=== PATIENT | female | born 1980 | race Caucasian/White ===

== ENCOUNTER 2022-11-13 08:41 | Emergency (ER) | payer OTHER, SELFPAY ==
[2022-11-13 08:42] VITALS: BP 114/65; PULSE 74; RESP 22; TEMP 36.6; O2SAT 100; BMI 26.3
--- NOTE | 2022-11-13 08:56 | EDS_ITS ---
HPI HPI - GI History of Present Illness Chief Complaint: Flank Pain Narrative Narrative: 42-year-old female presenting with right-sided abdominal pain and back pain. She states that this started about 5 AM this morning while she was camping. She denies any injury. She states the pain is constant but waxes and wanes in severity. She had 3 episodes of vomiting this morning. She states it feels sharp and cramping in the right side of her abdomen. Denies history of kidney stones. She states she has had a tubal ligation. No history of ovarian cysts or torsion. She does not have any urinary or vaginal complaints. She states that currently the pain that she is having is more to the midline in the suprapubic area. No fevers or chills. She states she has not been constipated and actually had a bowel movement this morning which was normal. PFSH PFS Medical History delivery delivered Hypothyroidism Home Medications ondansetron 4 mg disintegrating tablet 4 mg PO Q8H PRN PRN Nausea #14 tabs 11/13/22 [Rx Last Taken Unknown] oxycodone-acetaminophen 5 mg-325 mg tablet (Percocet) 1 tab PO Q8H PRN pain 3 days #12 tabs 11/13/22 [Rx Last Taken Unknown] Allergy/AdvReac Type Severity Reaction Status Date / Time No Known Allergies Allergy Verified 11/13/22 08:46 Social History Smoking Status: Never smoker ROS ROS ED Constitutional Constitutional ED: Denies chills or fever(s) ENT ENT ED: Denies rhinorrhea or sore throat Cardiovascular Cardiovascular: Denies chest pain or palpitations Respiratory/Chest Respiratory/Chest: Denies cough or dyspnea Gastrointestinal Gastrointestinal: Reports abdominal pain, nausea and vomiting Genitourinary Genitourinary ED: Denies dysuria or hematuria Musculoskeletal Musculoskeletal: Reports back pain; Denies arthralgias Integumentary Denies abscess Neurologic Neurologic: Denies headache(s) or paresthesias Psychiatric Psychiatric: Denies anxiety or depression EXAM Physical Exam Const Vital Signs: 11/13/22 08:42 Temperature 97.8 F Temperature Source Temporal Pulse Rate 74 Respiratory Rate 22 H Blood Pressure 114/65 Blood Pressure Mean 81 Pulse Ox 100 Positive well nourished Constitutional Narrative: Appears to be in pain General Appearance ED: NAD HEENT Reports moist mucous membranes Eyes General Eye ED: Negative for pale conjunctiva Resp normal respiratory effort GI Palpation: tender RLQ and periumbilical Back/Spine no CVA tenderness Extremity full ROM Neuro CN's II-XII intact bilaterally and moves all extremities Sensorium / Orientation: alert Motor Exam: strength 5/5 throughout Psych mental status grossly normal and thought process normal Skin no wounds MDM MDM MDM Narrative Medical decision making narrative: 42-year-old female presenting with right-sided abdominal pain. Differential includes UTI, pyelonephritis, diverticulitis, colitis, kidney stone, appendicitis, ectopic , ovarian torsion, ovarian cyst. CBC will be obtained to assess white blood cell count, hemoglobin, platelets. CMP to assess liver function, renal function, electrolytes. Urinalysis to assess for UTI. hCG to assess for . Patient medicated with morphine, Zofran, Toradol. CBC showed a normal white blood cell count 11.0. H&H are stable. Renal function electrolytes within normal limits. Urinalysis negative for infection. She is given morphine and Zofran initially and her pain returned so she was given Phenergan and morphine. CT of the abdomen pelvis without contrast identifies a 2.5 mm distal ureteral stone. CT scan also showed a hemangioma. Patient was given referral for urology however she lives in [place] and will follow-up with her primary care physician there. She was given a prescription for Percocet and Zofran. She was instructed to drink only fluids. Return precautions were discussed Impression: 1. Hemangioma of the liver 2. 2.5 mm distal UVJ stone 3. Nausea/vomiting 4. Hematuria 5. Hydronephrosis Lab Data Attestation: I reviewed the patient's lab results. Labs: Laboratory Results - last 24 hr 11/13/22 11/13/22 08:50 09:00 WBC 11.0 RBC 4.43 Hgb 13.9 Hct 42.5 MCV 95.9 MCH 31.4 MCHC 32.7 RDW Std Deviation 44.9 H RDW Coeff of Milo 12.6 Plt Count 307 MPV 10.4 Immature Gran % (Auto) 0.500 Neut % (Auto) 77.4 H Lymph % (Auto) 16.1 L Phillips % (Auto) 5.0 Eos % (Auto) 0.5 Baso % (Auto) 0.5 Absolute Neuts (auto) 8.5 H Absolute Lymphs (auto) 1.77 Nucleated RBC % 0 Sodium 138 Potassium 3.5 Chloride 110 H Carbon Dioxide 22.0 Anion Gap 6 BUN 19 H Creatinine 1.00 Estim Creat Clear Calc 67.21 Est GFR (MDRD) Af Amer 77 Est GFR (MDRD) Non-Af 64 BUN/Creatinine Ratio 19.0 Glucose 113 H Calcium 9.6 Total Bilirubin 0.30 AST 12 L ALT 17 Alkaline Phosphatase 52 Total Protein 7.4 Albumin 3.8 Globulin 3.6 Albumin/Globulin Ratio 1.1 Urine Color Yellow Urine Clarity Clear Urine pH 8.0 Ur Specific [place] 1.015 Urine Protein 30 H Urine Glucose (UA) Normal Urine Ketones 5 H Urine Occult Blood 10 H Urine Nitrite Negative Urine Bilirubin Negative Urine Urobilinogen Normal Ur Leukocyte Esterase 25 H Urine RBC 0 SEEN Urine WBC 0-5 SEEN Ur Squamous Epith Cells 0-5 SEEN Urine Bacteria 1+ Urine Mucus 0 SEEN Urine Test Negative Radiography Diagnostic Testing: Clinical Impression(s) from Imaging Studies Abdomen/Pelvis CT 11/13/22 09:43 IMPRESSION: Right-sided hydronephrosis and hydroureter with perinephric and periureteral inflammatory stranding. Findings due to a 2.5 mm calcification in the distal right ureter near the UVJ on images described above. Hypoattenuated 7 cm lesion in the inferior right lobe of the liver likely hemangioma but there are no previous studies available for comparison. This could be confirmed with ultrasound, contrasted study or tagged red cell study Normal appendix visualized Electronically Signed: Robert Wilks MD at 11:30 EDT , Discharge Plan Triage Chief Complaint: Flank Pain ED Provider: Eulogio Mcclellan Dx/Rx/DC Orders Instructions: ED Kidney Stone w/ Colic Prescriptions: New ondansetron 4 mg tablet,disintegrating 4 mg PO Q8H PRN PRN (Reason: Nausea) Qty: 14 0RF oxycodone-acetaminophen [Percocet] 5-325 mg tablet 1 tab PO Q8H PRN (Reason: pain) 3 Days Qty: 12 0RF Primary Care Provider: Care Physician,No Primary Referrals: Lisa De Leon MD [Med Staff - Active Staff] - 3-5 Days NOT,DEFINED [Non-Staff] - Disposition Disposition: Home, Self Care Discharge Date/Time: 11/13/22 12:03
[2022-11-13 09:01] LABS: Absolute Lymphocyte Count 1.77 X10^3/uL (0.83-4.51); Absolute Neutrophil Count 8.5 X10^3/uL (2.0-7.7); Basophil# 0.06 X10^3/uL; Basophil% 0.5 % (0-1); Eosinophil# 0.06 X10^3/uL; Eosinophils% 0.5 % (0-5); Hematocrit 42.5 % (37-47); Hemoglobin 13.9 g/dL (12.0-15.0); Lymphocyte # 1.77 X10^3/ul (0.83-4.51); Lymphocyte % 16.1 % (19-41); Mean Corp Hgb Conc 32.7 g/dL (32-36); Mean Corpuscular Hgb 31.4 pg (27.0-32.0); Mean Corpuscular Volume 95.9 fL (81-99); Mean Platelet Vol. 10.4 fl (6.2-12.0); Monocyte# 0.55 X10^3/uL; NRBC Flagged by Analyzer 0 % (0-5); Neutrophil % 77.4 % (47-70); Platelet Count 307 K/mm3 (150-450); RBC Distribution Width CV 12.6 % (11.6-14.6); RBC Distribution Width SD 44.9 fl (35.1-43.9); Red Blood Count 4.43 M/mm3 (4.2-5.4)
[2022-11-13 09:02] LABS: Mucous, Urine 0 SEEN /hpf (<or=2+); Red Blood Cells-Urine 0 SEEN /hpf (0-5)
[2022-11-13] MEDS: Ondansetron 4 MG/2 ML Vial IV (09:02)
[2022-11-13] MEDS: Morphine 4 MG/ML Syringe IV ×2 (09:02→10:41)
[2022-11-13] MEDS: Ketorolac 15 MG/ML Vial IV (09:02)
[2022-11-13] MEDS: 0.9% Normal Saline 1,000 ML 1000 ML IV (09:04)
[2022-11-13 09:05] LABS: Color, Urine Yellow (Yellow); Glucose, Dipstick Normal (Normal); Ketone-Dipstick 5 mg/dl (Negative); Leukocyte Esterase-Dipstick 25 /ul (Negative); Nitrite-Dipstick Negative (Negative); Occult Blood-Urine 10 /ul (Negative); Protein-Dipstick 30 mg/dl (Negative); Specific Gravity, Urine 1.015 (1.002-1.030); Urine Bilirubin Dipstick Negative (Negative); Urine Clarity Clear (Clear); Urine Urobilinogen Normal (Normal)
[2022-11-13 09:13] LABS: Bacteria 1+ /hpf (None Seen); Squamous Epithelial Cells - UA 0-5 SEEN /hpf (5-10); White Blood Cells 0-5 SEEN /hpf (0-5)
[2022-11-13 09:16] LABS: ALB/GLOB Ratio 1.1 RATIO (0.9-2.4); AST(SGOT) 12 U/L (15-37); Alanine Aminotransfer ALT/SGPT 17 U/L (13-56); Albumin, Serum 3.8 g/dL (3.2-5.0); Alkaline Phosphatase 52 U/L (45-117); Anion Gap 6 (5-15); BUN 19 mg/dL (7-18); Calcium,Total 9.6 mg/dL (8.5-10.1); Chloride 110 mmol/L (98-107); EST Glomerular Filtration Rate 64 mL/min (>60); Est Glom Filt Rate - Afr Amer 77 mL/min (>60); Estimated Creatinine Clearance 67.21 ml/min; Globulin 3.6 g/dL (2.2-4.2); Glucose 113 mg/dL (74-106); Potassium 3.5 mmol/L (3.5-5.1); Protein, Total 7.4 g/dL (6.4-8.2); Sodium Level 138 mmol/L (136-145)
--- NOTE | 2022-11-13 09:43 | CT_ITS ---
STUDY: CT ABDOMEN AND PELVIS WITHOUT CONTRAST REASON FOR EXAM: Female, 42 years old. Right flank pain RADIATION DOSAGE (If Supplied By Facility): CTDIvol = ( 6.93 ) mGy, DLP = ( 356.71 ) mGycm TECHNIQUE: Transaxial images were obtained from the dome of the diaphragm to the symphysis pubis without oral contrast, and without intravenous contrast. Sagittal and coronal images were reconstructed. Individualized dose optimization techniques were used for this CT. COMPARISON: None. FINDINGS: The visualized lung bases are unremarkable. The visualized portions of the heart are within normal limits. There is a hypodense mass in the right lobe of the liver likely hemangioma measuring 7.04 x 5.65 cm. There are no previous studies available for comparison, this could be confirmed with ultrasound, contrasted CT or tagged red cell study. Normal gallbladder and extrahepatic biliary system. Normal spleen. Normal pancreas. Normal bilateral adrenal glands. Left kidney is unremarkable. Right kidney shows hydronephrosis and hydroureter with perinephric and periureteral inflammatory stranding. There is a punctate nonobstructing right renal stone. Findings due to a 2.5 mm stone in the distal right ureter near the UVJ seen on axial image 153 and coronal recon image 57. Normal visualized stomach. Normal small intestine. Normal colon. The appendix is visualized and appears normal. Findings seen on coronal recon images 39 through 42 Normal abdominal aorta. Normal inferior vena cava. Normal retroperitoneum. The bladder is incompletely distended. Normal-appearing uterus with physiologic ovarian cysts. Normal abdominal wall. Normal osseous structures. CT/Abdomen/Pelvis without Cont IMPRESSION: Right-sided hydronephrosis and hydroureter with perinephric and periureteral inflammatory stranding. Findings due to a 2.5 mm calcification in the distal right ureter near the UVJ on images described above. Hypoattenuated 7 cm lesion in the inferior right lobe of the liver likely hemangioma but there are no previous studies available for comparison. This could be confirmed with ultrasound, contrasted study or tagged red cell study Normal appendix visualized Electronically Signed: Robert Wilks MD at 11:30 EDT ,
[2022-11-13 09:49] LABS: Internal QC Validated? YES +Cl - CLEAR BKGD; Pregnancy, Urine Negative Negative; Record Kit Lot#,Urine Preg 667200
[2022-11-13] MEDS: proMETHazine 25 MG/ML Syringe 12.5 MG IM (10:28)
== END 2022-11-13 12:03 | disposition home or self-care (01) ==
PROVIDERS: Emergency Provider Student in an Organized Health Care Education/Training Program; Visit Provider Student in an Organized Health Care Education/Training Program
DX: D18.03 Hemangioma of intra-abdominal structures (principal); N13.2 Hydronephrosis with renal and ureteral calculous obstruction; R11.2 Nausea with vomiting, unspecified; R31.9 Hematuria, unspecified
CPT/HCPCS: 74176; 80053; 81001; 81025; 85025; 96361; 96372; 96374; 96375; 96376; 99283; J7030; A4216; J2405